=== PATIENT | female | born 1940 ===

== ENCOUNTER → 2023-06-11 11:10 | Outpatient (REF) | payer MEDICARE, OTHER, SELFPAY ==
[2023-06-11 11:30] LABS: HDL Cholesterol 47 mg/dl; LDL Cholesterol, Calculated 75 mg/dl; Total Cholesterol 137 mg/dl (50-199); Triglyceride 78 mg/dl (10-149); Very Low Density Lipoprotein 15 mg/dl (0-30)
== END ==
LOC: OLABN 11:10
PROVIDERS: ATTENDING PHYSICIAN Student in an Organized Health Care Education/Training Program
DX: E78.5 Hyperlipidemia, unspecified (principal)
CPT/HCPCS: 36415; 80061

== ENCOUNTER → 2023-07-01 12:43 | Outpatient (REF) | payer MEDICARE, OTHER, SELFPAY ==
[2023-07-01 13:10] LABS: % Basophils 0.9 % (0-2); % Eosinophils 3.4 % (0-6); % Immature Granulocytes 0.3 % (0-0.5); % Lymphocytes 32.7 % (20.5-51.1); % Monocytes 8.6 % (1.7-9.3); % Neutrophils 54.1 % (42.2-75.2); Absolute Basophils 0.1 10^3/uL (0-0.2); Absolute Eosinophils 0.2 10^3/uL (0-0.7); Absolute Lymphocytes 2.1 10^3/uL (1.2-3.4); Absolute Monocytes 0.6 10^3/uL (0.1-0.6); Absolute Neutrophils 3.5 10^3/uL (1.4-6.5); Hematocrit 31.7 % (37.0-47.0); Hemoglobin 10.9 g/dL (12.0-16.0); Mean Corp Hgb Conc. 34.4 g/dL (33.0-37.0); Mean Corpuscular Hgb 32.5 pg (27.0-31.0); Mean Corpuscular Volume 94.6 fL (81.0-99.0); Mean Platelet Volume 9.6 fL (7.4-10.4); Nucleated Red Blood Cells % 0 %; Platelet Count 267 10^3/uL (130-400); Red Blood Cell Count 3.35 10^6/uL (4.20-5.40); Red Cell Dist. Width 15.6 % (11.5-14.5); White Blood Cell Count 6.4 10^3/uL (4.8-10.8)
[2023-07-01 13:53] LABS: ALT (SGPT) 11 U/L (0-35); AST (SGOT) 18 U/L (14-36); Albumin 3.1 g/dl (3.5-5.0); Alkaline Phosphatase 71 U/L (38-126); Blood Urea Nitrogen 20 mg/dl (7-17); Calcium 8.6 mg/dl (8.4-10.2); Carbon Dioxide 26 mmol/L (22-30); Chloride 101 mmol/L (98-107); Direct Bilirubin 0.5 mg/dl (0.0-0.4); Glucose 78 mg/dl (70-99); Potassium 4.5 mmol/L (3.5-5.1); Sodium 129 mmol/L (135-145); Total Bilirubin 0.5 mg/dl (0.2-1.3); Total Protein 5.8 g/dl (6.3-8.2); eGFR > 60.00
== END ==
LOC: OLABN 12:43
PROVIDERS: ATTENDING PHYSICIAN Student in an Organized Health Care Education/Training Program
DX: M15.0 Primary generalized (osteo)arthritis (principal)
CPT/HCPCS: 36415; 80053; 82248; 85025

== ENCOUNTER → 2023-07-06 11:42 | Outpatient (REF) | payer MEDICARE, OTHER, SELFPAY ==
[2023-07-06 13:30] LABS: Blood Urea Nitrogen 11 mg/dl (7-17); Calcium 9.1 mg/dl (8.4-10.2); Carbon Dioxide 28 mmol/L (22-30); Chloride 99 mmol/L (98-107); Glucose 85 mg/dl (70-99); Potassium 4.6 mmol/L (3.5-5.1); Sodium 133 mmol/L (135-145); eGFR > 60.00
== END ==
LOC: OLABN 11:42
PROVIDERS: ATTENDING PHYSICIAN Student in an Organized Health Care Education/Training Program
DX: M15.0 Primary generalized (osteo)arthritis (principal); E87.1 Hypo-osmolality and hyponatremia
CPT/HCPCS: 36415; 80048

== ENCOUNTER → 2023-07-13 10:40 | Outpatient (REF) | payer MEDICARE, OTHER, SELFPAY ==
[2023-07-13 11:50] LABS: Blood Urea Nitrogen 18 mg/dl (7-17); Calcium 8.9 mg/dl (8.4-10.2); Carbon Dioxide 28 mmol/L (22-30); Chloride 97 mmol/L (98-107); Glucose 83 mg/dl (70-99); Potassium 4.4 mmol/L (3.5-5.1); Sodium 132 mmol/L (135-145); eGFR > 60.00
== END ==
LOC: OLABN 10:40
PROVIDERS: ATTENDING PHYSICIAN Student in an Organized Health Care Education/Training Program
DX: M15.0 Primary generalized (osteo)arthritis (principal); E87.1 Hypo-osmolality and hyponatremia
CPT/HCPCS: 36415; 80048

== ENCOUNTER → 2023-07-23 10:27 | Outpatient (REF) | payer MEDICARE, OTHER, SELFPAY ==
[2023-07-23 11:39] LABS: Blood Urea Nitrogen 14 mg/dl (7-17); Carbon Dioxide 30 mmol/L (22-30); Chloride 98 mmol/L (98-107); Glucose 86 mg/dl (70-99); Potassium 4.4 mmol/L (3.5-5.1); Sodium 133 mmol/L (135-145); eGFR > 60.00
== END ==
LOC: OLABN 10:27
PROVIDERS: ATTENDING PHYSICIAN Student in an Organized Health Care Education/Training Program
DX: M15.0 Primary generalized (osteo)arthritis (principal); E87.1 Hypo-osmolality and hyponatremia
CPT/HCPCS: 36415; 80048

== ENCOUNTER → 2023-07-30 10:02 | Outpatient (REF) | payer MEDICARE, OTHER, SELFPAY ==
[2023-07-30 10:46] LABS: Blood Urea Nitrogen 16 mg/dl (7-17); Calcium 8.8 mg/dl (8.4-10.2); Carbon Dioxide 26 mmol/L (22-30); Chloride 101 mmol/L (98-107); Glucose 84 mg/dl (70-99); Potassium 4.6 mmol/L (3.5-5.1); Sodium 131 mmol/L (135-145); eGFR > 60.00
== END ==
LOC: OLABN 10:02
PROVIDERS: ATTENDING PHYSICIAN Student in an Organized Health Care Education/Training Program
DX: E87.1 Hypo-osmolality and hyponatremia (principal)
CPT/HCPCS: 36415; 80048

== ENCOUNTER → 2024-10-25 09:20 | Outpatient (REF) | payer MEDICARE, OTHER, SELFPAY ==
[2024-10-25 10:31] LABS: % Basophils 0.6 % (0-2); % Eosinophils 2.4 % (0-6); % Immature Granulocytes 0.3 % (0-0.5); % Lymphocytes 25.4 % (20.5-51.1); % Monocytes 9.3 % (1.7-9.3); Absolute Eosinophils 0.2 10^3/uL (0-0.7); Absolute Lymphocytes 1.8 10^3/uL (1.2-3.4); Absolute Monocytes 0.7 10^3/uL (0.1-0.6); Absolute Neutrophils 4.4 10^3/uL (1.4-6.5); Hematocrit 34.2 % (37.0-47.0); Hemoglobin 11.7 g/dL (12.0-16.0); Mean Corp Hgb Conc. 34.2 g/dL (33.0-37.0); Mean Corpuscular Hgb 32.1 pg (27.0-31.0); Mean Corpuscular Volume 93.7 fL (81.0-99.0); Mean Platelet Volume 9.1 fL (7.4-10.4); Nucleated Red Blood Cells % 0 %; Platelet Count 271 10^3/uL (130-400); Red Blood Cell Count 3.65 10^6/uL (4.20-5.40); Red Cell Dist. Width 15.5 % (11.5-14.5); White Blood Cell Count 7.1 10^3/uL (4.8-10.8)
== END ==
LOC: OLABN 09:20
PROVIDERS: ATTENDING PHYSICIAN Student in an Organized Health Care Education/Training Program
DX: Z79.899 Other long term (current) drug therapy (principal); M15.0 Primary generalized (osteo)arthritis
CPT/HCPCS: 36415; 85025

== ENCOUNTER → 2024-11-15 10:33 | Outpatient (REF) | payer MEDICARE, OTHER, SELFPAY ==
[2024-11-15 11:50] LABS: Hematocrit 33.3 % (37.0-47.0); Hemoglobin 11.4 g/dL (12.0-16.0); Mean Corp Hgb Conc. 34.2 g/dL (33.0-37.0); Mean Corpuscular Volume 93.8 fL (81.0-99.0); Nucleated Red Blood Cells % 0 %; Platelet Count 266 10^3/uL (130-400); Red Cell Dist. Width 15.2 % (11.5-14.5)
[2024-11-15 12:15] LABS: ALT (SGPT) 11 U/L (0-35); AST (SGOT) 15 U/L (14-36); Albumin 3.2 g/dl (3.5-5.0); Alkaline Phosphatase 76 U/L (38-126); Blood Urea Nitrogen 14 mg/dl (7-17); Calcium 9.0 mg/dl (8.4-10.2); Carbon Dioxide 25 mmol/L (22-30); Chloride 103 mmol/L (98-107); Glucose 88 mg/dl (70-99); Potassium 4.4 mmol/L (3.5-5.1); Sodium 133 mmol/L (135-145); Total Protein 5.9 g/dl (6.3-8.2); eGFR > 60.00
[2024-11-15 12:52] LABS: C-Reactive Protein 9.60 mg/L (0.0-10.00)
== END ==
LOC: OLABN 10:33
PROVIDERS: ATTENDING PHYSICIAN Student in an Organized Health Care Education/Training Program
DX: R60.9 Edema, unspecified (principal)
CPT/HCPCS: 36415; 80053; 85025; 85652; 86140

== ENCOUNTER → 2024-12-27 10:55 | Outpatient (REF) | payer MEDICARE, OTHER, SELFPAY ==
[2024-12-27 11:28] LABS: Hematocrit 37.7 % (37.0-47.0); Hemoglobin 12.7 g/dL (12.0-16.0); Mean Corp Hgb Conc. 33.7 g/dL (33.0-37.0); Mean Corpuscular Volume 94.5 fL (81.0-99.0); Nucleated Red Blood Cells % 0 %; Platelet Count 288 10^3/uL (130-400); Red Cell Dist. Width 15.1 % (11.5-14.5)
[2024-12-27 11:47] LABS: AST (SGOT) 18 U/L (14-36); Albumin 3.9 g/dl (3.5-5.0); Alkaline Phosphatase 78 U/L (38-126); Total Protein 7.1 g/dl (6.3-8.2)
[2024-12-27 11:49] LABS: ALT (SGPT) 16 U/L (0-35)
== END ==
LOC: OLABN 10:55
PROVIDERS: ATTENDING PHYSICIAN Student in an Organized Health Care Education/Training Program
DX: Z79.899 Other long term (current) drug therapy (principal); M15.0 Primary generalized (osteo)arthritis
CPT/HCPCS: 36415; 80076; 85025

== ENCOUNTER → 2025-01-23 11:40 | Outpatient (REF) | payer MEDICARE, OTHER, SELFPAY ==
[2025-01-23 13:08] LABS: HDL Cholesterol 55 mg/dl; LDL Cholesterol, Calculated 75 mg/dl; Very Low Density Lipoprotein 14 mg/dl (0-30)
== END ==
LOC: OLABN 11:40
PROVIDERS: ATTENDING PHYSICIAN Student in an Organized Health Care Education/Training Program
DX: E78.5 Hyperlipidemia, unspecified (principal)
CPT/HCPCS: 36415; 80061

== ENCOUNTER → 2025-02-22 13:48 | Outpatient (REF) | payer MEDICARE, OTHER, SELFPAY ==
[2025-02-22 18:28] LABS: Blood Urea Nitrogen 12 mg/dl (7-17); Calcium 9.0 mg/dl (8.4-10.2); Carbon Dioxide 26 mmol/L (22-30); Chloride 100 mmol/L (98-107); Glucose 96 mg/dl (70-99); Potassium 4.3 mmol/L (3.5-5.1); Sodium 132 mmol/L (135-145); eGFR > 60.00
== END ==
LOC: OLABN 13:48
PROVIDERS: ATTENDING PHYSICIAN Student in an Organized Health Care Education/Training Program
DX: M15.0 Primary generalized (osteo)arthritis (principal)
CPT/HCPCS: 80048

== ENCOUNTER → 2025-02-28 10:39 | Outpatient (REF) | payer MEDICARE, OTHER, SELFPAY ==
[2025-02-28 11:17] LABS: Hematocrit 34.5 % (37.0-47.0); Hemoglobin 11.0 g/dL (12.0-16.0); Mean Corp Hgb Conc. 31.9 g/dL (33.0-37.0); Mean Corpuscular Volume 98.3 fL (81.0-99.0); Nucleated Red Blood Cells % 0 %; Platelet Count 266 10^3/uL (130-400); Red Cell Dist. Width 15.3 % (11.5-14.5)
== END ==
LOC: OLABN 10:39
PROVIDERS: ATTENDING PHYSICIAN Student in an Organized Health Care Education/Training Program
DX: Z79.899 Other long term (current) drug therapy (principal); M15.0 Primary generalized (osteo)arthritis
CPT/HCPCS: 36415; 85025

== ENCOUNTER → 2025-04-25 09:19 | Outpatient (REF) | payer MEDICARE, OTHER, SELFPAY ==
[2025-04-25 11:18] LABS: Hematocrit 35.1 % (37.0-47.0); Hemoglobin 11.9 g/dL (12.0-16.0); Mean Corp Hgb Conc. 33.9 g/dL (33.0-37.0); Mean Corpuscular Volume 95.9 fL (81.0-99.0); Nucleated Red Blood Cells % 0 %; Platelet Count 275 10^3/uL (130-400); Red Cell Dist. Width 15.3 % (11.5-14.5)
[2025-04-25 11:22] LABS: ALT (SGPT) 13 U/L (0-35); AST (SGOT) 19 U/L (14-36); Albumin 3.5 g/dl (3.5-5.0); Alkaline Phosphatase 76 U/L (38-126); Total Protein 6.4 g/dl (6.3-8.2)
== END ==
LOC: OLABN 09:19
PROVIDERS: ATTENDING PHYSICIAN Student in an Organized Health Care Education/Training Program
DX: M15.0 Primary generalized (osteo)arthritis (principal); Z79.899 Other long term (current) drug therapy
CPT/HCPCS: 36415; 80076; 85025